=== PATIENT | female | born 1950 | race Caucasian/White ===

== ENCOUNTER 2022-07-23 09:47 | Outpatient (CLI) | payer MEDICARE, SELFPAY ==
--- NOTE | ~2022-07-23 | XR_ITS ---
XR hip LT 2V w AP pelvis DATE: 07/23/2022 10:17 INDICATION: Left hip pain. No known injury. TECHNIQUE: AP pelvis. AP and lateral views of left hip. COMPARISON: None FINDINGS: Prominent degenerative disc disease at L4-5 and L5-S1. Generator device overlies the left iliac crest, with leads extending cephalad. Bilateral osteitis condensans ilii. Normal alignment at the pubic symphysis and sacroiliac joints. No pelvic fracture or bone destruction is detected. Status post left total hip arthroplasty. No fracture or dislocation is noted at the left hip. No gomez osteal reaction or bone destruction. Surgical clips overlie the right hip. IMPRESSION: Status post left hip arthroplasty Bilateral osteitis condensans ilii Prominent degenerative disc disease at L4-5 and L5-S1 Reviewed, dictated and finalized at location B.
== END 2022-07-23 09:48 | disposition home or self-care (01) ==
PROVIDERS: PCP Internal Medicine; Visit Provider Internal Medicine
DX: M25.552 Pain in left hip (principal); Z96.642 Presence of left artificial hip joint; M85.38 Osteitis condensans, other site; M51.36 Other intervertebral disc degeneration, lumbar region
CPT/HCPCS: 73502

== ENCOUNTER 2022-07-23 10:32 | Emergency (ER) | payer MEDICARE, SELFPAY ==
[2022-07-23 10:51] VITALS: BP 181/66; PULSE 72; RESP 20; TEMP 36.8; O2SAT 98
--- NOTE | 2022-07-23 11:37 | ED.LOWEXIN ---
HPI - Extremity Injury (Lower) General Chief Complaint: Extremity Injury, Lower Stated Complaint: left hip pain - imaging already done out pt Time Seen by Provider: 07/23/22 11:37 Source: patient Mode of arrival: ambulatory Limitations: no limitations History of Present Illness HPI Narrative: Patient is a 72-year-old female with a history of hypertension, coronary artery disease, open heart surgery, presenting to the emergency department for evaluation of left hip pain. Patient reports she has had daily lateral left hip pain which is sharp, burning in nature without radiation to the buttocks or lower leg over the past 3 weeks. Patient was referred by her primary care physician for a hip x-ray today, but states that the pain was so severe that she cannot return home thus is seeking care at the emergency department. Patient has been taking oral Percocet without much improvement in her pain. She denies any focal numbness or weakness. She denies recent fall or injury. She denies back pain or knee pain. She denies any significant redness, reports chronic swelling of her bilateral lower extremities. She denies any lower extremity redness, calf pain. Patient states that she has follow-up with Dr. Varghese scheduled for August 12. Related Data Home Medications Medication Instructions Recorded Confirmed atorvastatin 40 mg tablet mg 07/23/22 clopidogrel 75 mg tablet mg 07/23/22 empagliflozin 25 mg tablet mg 07/23/22 (Jardiance) ezetimibe 10 mg tablet mg 07/23/22 fenofibrate nanocrystallized 145 mg PO 07/23/22 mg tablet folic acid 1 mg tablet 07/23/22 hydrocodone 5 mg-acetaminophen 325 tablet 07/23/22 mg tablet lisinopril 40 mg tablet mg 07/23/22 metoprolol tartrate 25 mg tablet mg 07/23/22 sertraline 50 mg tablet mg 07/23/22 tizanidine 4 mg tablet mg 07/23/22 Allergies Allergy/AdvReac Type Severity Reaction Status Date / Time Penicillins Allergy Rash Verified 07/23/22 10:55 Sulfa (Sulfonamide Allergy Rash Verified 07/23/22 10:55 Antibiotics) Review of Systems Review of Systems: CONSTITUTIONAL: Denies fever, chills, or sweats. EYES: Denies visual changes, redness, or discharge. ENT: Denies rhinorrhea, congestion, sore throat, or otalgia. CARDIOVASCULAR: Denies chest pain, palpitations, or edema. RESPIRATORY: Denies cough or dyspnea. GASTROINTESTINAL: Denies abdominal pain, nausea, vomiting, or diarrhea. GENITOURINARY: Denies dysuria or hematuria. SKIN: Denies rash or itching. MUSCULOSKELETAL: Denies back pain, denies knee pain, reports lateral left hip pain NEUROLOGIC: Denies headache, numbness, or weakness. Exam Narrative: GENERAL: Awake, alert, conversant HEAD: Normocephalic, atraumatic. EYES: PERRLA and EOMI. ENT: Nares clear, no rhinorrhea or epistaxis. Mucous membranes moist. NECK: Supple. CHEST: No respiratory distress, breathing even and non labored HEART: Regular rate, sinus rhythm ABDOMEN: Obese, distended, non tender EXTREMITIES: Normal range of motion. No edema. Pelvis is stable to anterior lateral compression. There is pain to palpation of the left lateral hip. Patient is ambulatory and able to bear weight on this extremity. No limb length discrepancy. Neurovascularly intact. Distal sensation intact. Full range of motion of the left hip although it is somewhat limited secondary to pain. Full flexion extension at the left knee without limitation or pain. SKIN: Warm, dry, no rash. NEURO:No focal deficits. Alert and oriented x3 Course Vital Signs Vital signs: Vital Signs Temperature 36.8 C 07/23/22 10:51 Pulse Rate 72 07/23/22 10:51 Respiratory Rate 20 07/23/22 10:51 Blood Pressure 181/66 H 07/23/22 10:51 Pulse Oximetry 98 07/23/22 10:51 Oxygen Delivery Room Air 07/23/22 10:51 Temperature 36.8 C 07/23/22 10:51 Pulse Rate 72 07/23/22 10:51 Respiratory Rate 20 07/23/22 10:51 Blood Pressure 181/66 H 07/23/22 10:51 Pulse Oximetry 98 0
[2022-07-23 13:07] LABS: Anion Gap 11 mmol/L (8-16); Blood Urea Nitrogen 25 mg/dL (7-17); CRP 0.9 mg/dL (<1.0); Calcium 9.3 mg/dL (8.4-10.2); Carbon Dioxide 23 mmol/L (22-30); Chloride 106 mmol/L (98-107); Estimated CRCL calculation 69 ml/min; Estimated Glomerular Filt Rate > 60; Glucose 95 mg/dL (65-110); Potassium 4.2 mmol/L (3.4-5.0); Sodium 140 mmol/L (137-145)
[2022-07-23 13:22] LABS: Basophils Absolute Auto 0.1 K/mm3 (0.0-0.1); Basophils Percent Auto 0.8 % (0.2-1.2); Eosinophils Absolute Auto 0.5 K/mm3 (0-0.3); Eosinophils Percent Auto 4.8 % (0-4.4); Hematocrit 32.1 % (37.0-47.0); Hemoglobin 9.3 g/dL (12.0-15.0); Immature Granulocyte Absolute 0.06 K/mm3 (0.00-0.031); Immature Granulocyte Percent A 0.6 % (0-0.5); Lymphocytes Absolute Auto 2.38 K/mm3 (0.9-3.2); Lymphocytes Percent Auto 25.1 % (18.3-44.2); Mean Corpuscular Hemoglobin 23.9 pg (26-34); Mean Corpuscular Volume 82.5 fl (80-100); Mean Platelet Volume 9.4 fl (7.4-10.4); Monocytes Absolute Auto 0.8 K/mm3 (0.1-0.6); Neutrophils Absolute Auto 5.7 K/mm3 (1.3-6.7); Neutrophils Percent Auto 60.7 % (45.5-73.1); Platelet Count Result 406 k/mm3 (150-375); Red Blood Count 3.89 M/mm3 (4.2-5.4); Red Cell Distribution Width 17.2 % (11.5-14.5); White Blood Count 9.5 K/mm3 (4.5-10.0)
[2022-07-23 14:11] LABS: Erythrocyte Sedimentation Rate 51 mm/hr (0-20)
[2022-07-23 15:22] VITALS: BP 144/68; PULSE 80; RESP 16; O2SAT 99
== END 2022-07-23 15:23 | disposition home or self-care (01) ==
PROVIDERS: Emergency Provider Emergency Medicine; PCP Internal Medicine
DX: M25.552 Pain in left hip (principal); I10 Essential (primary) hypertension; I25.10 Atherosclerotic heart disease of native coronary artery without angina pectoris; Z79.84 Long term (current) use of oral hypoglycemic drugs
CPT/HCPCS: 36415; 73502; 80048; 85025; 85652; 86140; 99283

== ENCOUNTER 2022-09-09 10:59 | Outpatient (CLI) | payer MEDICARE, SELFPAY ==
--- NOTE | ~2022-09-09 | MM_ITS ---
MM post biopsy diagnostic RT, MM stereotactic specimen RT, MM stereotactic bx RT EXAMINATION: MM post biopsy diagnostic RT, MM stereotactic specimen RT, MM stereotactic bx RT DATE: Mauricio Elkins M.D. INDICATION: Abnormal calcifications in the right breast. Stereotactic core biopsy is requested evalu ate for malignancy.] TECHNIQUE AND FINDINGS: The risks and potential benefits of the procedure were discussed with the patient and written informe d consent was obtained. The patient was placed in the prone position clustered at the table with the right breast in mediolateral compression, and the area of interest was localized and targeted utiliz ing digital imaging with stereotaxis. After sterile preparation of the skin, 1% lidocaine was utilized for local anesthesia at the skin pun cture site and 1% lidocaine with epinephrine was utilized for deeper local anesthesia/is about the bi opsy site. A 9G [employer] vacuum assisted biopsy needle was advanced to the level of the calcification o f interest from a lateral approach utilizing stereotactic guidance and a total of 6 tissue core biops ies were obtained. A specimen radiograph demonstrates that the calcifications of interest are included within the tissue cores. A tissue marker clip was then placed at the biopsy site. The needle was removed and hemosta sis was achieved. The patient tolerated the procedure well and there is no evidence of significant i mmediate complication. The patient was given verbal as well as written postprocedural instructions p rior to discharge from the department. Tissue cores were submitted to surgical pathology for histolo gic analysis. A 2-view right unilateral digital mammogram was obtained post procedure and this demonstrates that th e tissue marker clip is in expected position. IMPRESSION: 1. Successful stereotactic biopsy of calcifications in the upper outer quadrant of the right breast, followed by tissue marker clip placement. Please refer to pathology report for histologic analysis. Reviewed, dictated and finalized at location A. IMPRESSION: 1. Successful stereotactic biopsy of calcifications in the upper outer quadran t of the right breast, followed by tissue marker clip placement. Please refer to pathology report for histologic analysis. IMPRESSION: 1. Successful stereotactic biopsy of calcifications in the upper outer quadran t of the right breast, followed by tissue marker clip placement. Please refer to pathology report for histologic analysis.
== END 2022-09-09 11:00 | disposition home or self-care (01) ==
PROVIDERS: PCP Internal Medicine; Visit Provider Surgery
DX: R92.0 Mammographic microcalcification found on diagnostic imaging of breast (principal); N60.91 Unspecified benign mammary dysplasia of right breast
CPT/HCPCS: 19081; 77065; 88305; A4648

== ENCOUNTER 2022-09-29 13:09 | Inpatient (IN) | payer MEDICARE, SELFPAY ==
[2022-09-29] VITALS (30 sets, daily range): BP systolic 132–182; BP diastolic 48–93; PULSE 56–70; RESP 14–28; TEMP 36.7–37.4; O2SAT 87–100
--- NOTE | ~2022-09-29 | US_ITS ---
EXAMINATION: US venous doppler [facility] DATE: 09/30/2022 09:47 INDICATION: Lower limb edema. TECHNIQUE: Grayscale ultrasound images without and with compression and Doppler ultrasound images of the bilateral lower extremity veins were obtained. COMPARISON: None. FINDINGS: The visualized portions of right common femoral vein, profunda (deep) femoral vein, femoral vein, pop liteal vein, peroneal veins, posterior tibial veins, and greater saphenous vein outflow are patent. The visualized portions of left common femoral vein, profunda femoral vein, femoral vein, popliteal v ein, peroneal veins, posterior tibial veins, and greater saphenous vein outflow are patent. IMPRESSION: 1. No deep venous thrombosis. Reviewed, dictated and finalized at location A. ARCH RN SPEC
--- NOTE | ~2022-09-29 | XR_ITS ---
EXAMINATION: XR chest 2V Exam Date/Time: 09/29/2022 14:05 [facility]OR [facility] HISTORY: extreme SOB,dizzy,nausea. HX [facility] 02/2022 Comparison: None available. RESULT: Lines, tubes, and devices: Median sternotomy wires, the superior most wire is fractured. Sternal fix ation plates. Mediastinal clips. Stimulator leads traverse the thoracic spine and terminate in the lo wer cervical spine. Lungs and pleura: Senescent changes. Streaky bibasilar atelectasis. Minimal left and mild right cost ophrenic angle blunting. Cardiomediastinal silhouette: Cardiomegaly. Aortic calcification. Other: No acute osseous or upper abdominal finding. IMPRESSION: Small right and trace left pleural effusions. Reviewed, dictated and finalized at location K. IC FLOOR LAYER
--- NOTE | 2022-09-29 13:30 | ECG_ITS ---
Measurements Intervals [place] Rate: 59 P: -1 MN: 137 QRS: 6 QRSD: 81 T: 10 QT: 412 QTc: 411 Interpretive Statements SINUS BRADYCARDIA LOW QRS VOLTAGE IN PRECORDIAL LEADS CONSIDER INFERIOR INFARCT, AGE INDETERMINATE ABNORMAL ECG NO PREVIOUS ECG AVAILABLE FOR COMPARISON Electronically Signed On 09-29-2022 19:46:49 BODY TECHNICIAN by Daniel Daigle D.O.
[2022-09-29 15:03] LABS: Basophils Absolute Auto 0.1 K/mm3 (0.0-0.1); Basophils Percent Auto 0.8 % (0.2-1.2); Eosinophils Absolute Auto 0.1 K/mm3 (0-0.3); Immature Granulocyte Absolute 0.06 K/mm3 (0.00-0.031); Immature Granulocyte Percent A 0.7 % (0-0.5); Lymphocytes Absolute Auto 1.64 K/mm3 (0.9-3.2); Lymphocytes Percent Auto 17.8 % (18.3-44.2); Mean Corpuscular HGB Conc 26.6 g/dl (32-36); Mean Corpuscular Hemoglobin 21.4 pg (26-34); Mean Corpuscular Volume 80.6 fl (80-100); Mean Platelet Volume 10.3 fl (7.4-10.4); Monocytes Absolute Auto 0.8 K/mm3 (0.1-0.6); Monocytes Percent Auto 8.8 % (2.6-8.5); Neutrophils Absolute Auto 6.5 K/mm3 (1.3-6.7); Neutrophils Percent Auto 70.9 % (45.5-73.1); Nucleated Red Blood Cells Perc 0.4 % (0.0-0.2); Platelet Count Result 357 k/mm3 (150-375); Red Blood Count 2.52 M/mm3 (4.2-5.4); Red Cell Distribution Width 17.9 % (11.5-14.5); White Blood Count 9.2 K/mm3 (4.5-10.0)
[2022-09-29 15:08] LABS: Alanine Aminotransferase 21 U/L (6-35); Albumin Level 3.9 g/dL (3.5-5.1); Alkaline Phosphatase 94 U/L (38-126); Anion Gap 19 mmol/L (8-16); Aspartate Amino Transferase 27 U/L (14-36); Bilirubin,Total 0.3 mg/dL (0.2-1.3); Blood Urea Nitrogen 13 mg/dL (7-17); Calcium 8.2 mg/dL (8.4-10.2); Carbon Dioxide 19 mmol/L (22-30); Chloride 107 mmol/L (98-107); Estimated CRCL calculation 60 ml/min; Estimated Glomerular Filt Rate > 60; Glucose 132 mg/dL (65-110); Potassium 3.9 mmol/L (3.4-5.0); Sodium 145 mmol/L (137-145)
[2022-09-29 15:36] LABS: Hemoglobin 5.4 g/dL (12.0-15.0)
[2022-09-29 15:37] LABS: Hematocrit 20.3 % (37.0-47.0)
[2022-09-29 15:38] LABS: Platelet Estimate Adequate (Adequate)
[2022-09-29 15:39] LABS: Anisocytosis 3+ (NORMAL); Hypochromasia 2+ (NORMAL); Schistocytes None Seen (NORMAL)
--- NOTE | 2022-09-29 16:37 | ED.GENADULT ---
HPI - General Adult General Chief complaint: Recheck/Abnormal Lab/Rx Stated complaint: bloodwork critically low Time Seen by Provider: 09/29/22 15:36 Source: RN notes reviewed History of Present Illness HPI narrative: Patient presents emergency department from home for anemia. Patient has been feeling short of breath for the past 1 week she states that shortness of breath has been worse with ambulation and activity states she gets winded very easily the patient has been seen by her PCP and initially started on a Z-Natalio she got back today and at that time lab work of been ordered lab results that showed a low hemoglobin and the patient been sent to the ER for further evaluation. Patient is on Plavix and aspirin she denies having blood in her stool she denies any fevers or chills abdominal pain nausea or vomiting states she has had a cough this been nonproductive. Related Data Home Medications Medication Instructions Recorded Confirmed atorvastatin 40 mg tablet mg 07/23/22 clopidogrel 75 mg tablet mg 07/23/22 empagliflozin 25 mg tablet mg 07/23/22 (Jardiance) ezetimibe 10 mg tablet mg 07/23/22 fenofibrate nanocrystallized 145 mg PO 07/23/22 mg tablet folic acid 1 mg tablet 07/23/22 hydrocodone 5 mg-acetaminophen 325 tablet 07/23/22 mg tablet lisinopril 40 mg tablet mg 07/23/22 metoprolol tartrate 25 mg tablet mg 07/23/22 sertraline 50 mg tablet mg 07/23/22 tizanidine 4 mg tablet mg 07/23/22 Allergies Allergy/AdvReac Type Severity Reaction Status Date / Time Penicillins Allergy Rash Verified 07/23/22 10:55 Sulfa (Sulfonamide Allergy Rash Verified 07/23/22 10:55 Antibiotics) Review of Systems Review of Systems: Gen.: Denies fevers or chills ENT: Denies congestion Respiratory: Reports shortness of breath and cough CV: Denies chest pain or palpitations GI: Denies abdominal pain nausea, emesis or diarrhea Musculoskeletal: Denies back pain or muscle pain Neuro: Denies numbness, tingling, weakness or focal weakness Skin: Denies rash Except as documented, all other systems reviewed and negative [facility] Past Medical History Medical History (Updated 09/29/22 @ 18:27 by Mark Cooper DO) Coronary artery disease Social History Social History (Updated 09/29/22 @ 16:39 by Mark Cooper DO) Smoking status: Never smoker Exam Narrative: APPEARANCE: No acute distress, nontoxic, resting in bed EYES: EOMI HEENT: Normocephalic, atraumatic, OMM RESPIRATORY: No respiratory distress Clear to auscultation bilaterally with no rhonchi wheezing or rales. CARDIOVASCULAR: Regular rate and rhythm without murmurs rubs or gallops. ABDOMINAL: Soft, nontender, nondistended, no rebound or guarding Rectal: No hemorrhoids or fissures small amount of light brown stool that is Hemoccult positive MUSCULOSKELETAl: Moves all extremities. No clubbing, cyanosis or edema. NEURO: Awake and alert. Following commands, speech normal, no focal deficits SKIN:: Warm, dry. No rashes lesions or abrasions PSYCHIATRIC: Normal affect/mood, Course Course Emergency Course: Discussed with Dr. Paz presentation work-up agrees with consult Discussed with CHRISTINE Fuchs for Dr. Du agrees with admission with patient be transfused 2 units of PRBC Discussed with patient and family results of workup and diagnosis. Discussed need for admission. Patient and family understand and agree to current treatment plan Vital Signs Vital signs: Vital Signs Temperature 99.3 F 09/29/22 13:27 Pulse Rate 68 09/29/22 13:27 Respiratory Rate 28 H 09/29/22 13:27 Blood Pressure 132/83 09/29/22 13:27 Pulse Oximetry 98 09/29/22 13:27 Oxygen Delivery Room Air 09/29/22 13:27 Temperature 98.0 F 09/29/22 17:42 Pulse Rate 57 L 09/29/22 17:15 Respiratory Rate 20 09/29/22 17:15 Blood Pressure 157/60 H 09/29/22 17:42 Pulse Oximetry 99 09/29/22 17:15 Oxygen Delivery Room Air 09/29/22 13:27 Medical D
--- NOTE | 2022-09-29 17:15 | PM.IMHP ---
H&P: HPI History of Present Illness Date/Time: 09/29/22 17:15 Chief Complaint: Abnormal lab work. Narrative: This is a very pleasant 72-year-old female with coronary artery disease status post 3 vessel bypass in February 2022, hypertension, and hyperlipidemia who presented to the emergency department from home for evaluation of abnormal lab work. She reports progressive weakness, fatigue, and dyspnea on lesser and lesser exertion for the past 1 week. After speaking with her doctor on the phone, she was prescribed a Z-Natalio for possible pneumonia but unfortunately her symptoms have continued and she never really had symptoms of pneumonia. She has also been feeling lightheaded and dizzy and has had occasional palpitations. She had lab work done as an outpatient was told today that she had critically low hemoglobin she was sent in for evaluation. Hemoglobin and hematocrit were 5.4 in 20.3% respectively and she is being admitted in this setting. With further questioning she does report that she suffers from GERD though she has not had any recent change in symptoms and is well controlled on Prilosec. She has had some slight nausea however. It is noted that she has been on clopidogrel since her bypass in February. With further questioning she did have 2 days worth of dark stools a couple of weeks ago which she attributed to the fact that she changed the type of stool softener that she was taking however she thought it was strange as she was not taking Pepto-Bismol which has previously made her stools dark. Stools have since cleared up. She does occasionally have bright red blood on the toilet tissue which she attributes to hemorrhoids. She is on chronic pain medication which tends to cause constipation; she has also had a rectocele repair and she reports that she has difficulties having bowel movements at time since the surgery.. At the time my evaluation she is resting comfortably. On exam she has pretty significant lower extremity edema which has popped up within the last 1 week. She has not had chest pain, orthopnea, paroxysmal nocturnal dyspnea, or resting shortness of breath. Review of Systems Review of Systems: Twelve systems were reviewed and are negative except for as per HPI. [facility] Past Medical History Medical History (Updated 09/29/22 @ 23:42 by Shila Ruggiero PA-C) Bladder cancer Coronary artery disease Hyperlipidemia Hypertension Surgical History Surgical History (Updated 09/29/22 @ 23:39 by Shila Ruggiero PA-C) History of bilateral knee arthroplasty History of bladder surgery TURBT History of hysterectomy History of repair of rectocele History of three vessel coronary artery bypass History of tonsillectomy History of total left hip replacement History of tubal ligation Family History Family History Father Acute myocardial infarction Diabetes mellitus Hypertension Sibling Colon cancer Social History Social History (Updated 09/29/22 @ 23:39 by Shila Ruggiero PA-C) Social History: Surrogate medical decision maker: Angel Christiansen, spouse. Code status: Full code. Smoking status: Never smoker Alcohol intake: never Substance use: never Has the Lack of Transportation Kept You From Medical Appointments or From Getting Medications?: No Within the Past 12 Months, Were You Worried Whether Your Food Would Run Out Before You Got Money to Buy More?: Never True What is Your Housing Situation Today?: I Have Housing Are You Worried That in the Next 2 Months, You May Not Have Your Own Housing to Live In?: No Do You Have Trouble Paying Your Heating Or Electricity Bill?: No Do You Have Trouble Paying For Medicines?: No Are You Currently Unemployed and Looking for Work?: No Highest Level of Education Completed: Trade/Vocational Certificate Do You Have Trouble With Childcare or the Care of a Family Member?: No Spiritual care concerns: No M
[2022-09-29 17:33] LABS: SARS-CoV-2 RNA PCR Negative
[2022-09-29 17:56] LABS: Immature Reticulocyte Fraction 13.5 % (3.0-15.9); Reticulocyte Hemoglobin Conten 15.3 pg (28.2-35.7); Reticulocyte Percent 2.46 % (0.7-4.3); Reticulocytes Absolute 0.06 B/L (32.2-175.7)
[2022-09-29 18:07] LABS: INR 1.2; Prothrombin Time 14.9 Seconds (11.1-14.7)
[2022-09-29 18:08] LABS: Iron 19 ug/dL (37-170); Partial Thromboplastin Time 35.4 SECONDS (22.3-36.8)
[2022-09-29 18:17] LABS: Percent Iron Saturation 4 % (20-50)
[2022-09-29 18:20] LABS: NT Pro B Type Natriuretic Pept 2410 pg/mL (5-100); Troponin I 0.014 ng/mL (0.000-0.034)
[2022-09-29 18:44] LABS: Ferritin 9.06 ng/mL (11.1-264)
[2022-09-29] MEDS: TUBING, BLOOD SET 1 EACH XX (19:20)
[2022-09-29] MEDS: SODIUM CHLORIDE 0.9% IV 250 ML 30 ML IV CONT (19:20)
[2022-09-29 19:21] LABS: Folic Acid > 20.0 ng/mL (2.76->20)
--- NOTE | 2022-09-29 20:30 | ADMGEN ---
This patient, Alysia Christiansen, was admitted to Medical Room 347-. Patient/family oriented to hospital policies and general routines including ID bracelet, bed and alarms, visiting hours, pain management, procedures, bathroom and other care routines, personal items, smoking policy, room service/diet, and visiting hours. Information on how to activate the Rapid Response Team has been discussed. Patient/Family are encouraged to report perceived risks to care and to ask questions if they do not understand what they are told or what they should do.
[2022-09-30] VITALS (11 sets, daily range): BP systolic 148–181; BP diastolic 53–78; PULSE 56–78; RESP 16–22; TEMP 36.7–36.9; O2SAT 97–100
[2022-09-30] MEDS: FUROSEMIDE INJ 40 MG/4 ML VIAL IV PUSH (01:15)
[2022-09-30 06:10] LABS: Basophils Absolute Auto 0.1 K/mm3 (0.0-0.1); Basophils Percent Auto 1.1 % (0.2-1.2); Eosinophils Absolute Auto 0.1 K/mm3 (0-0.3); Eosinophils Percent Auto 1.5 % (0-4.4); Hematocrit 25.1 % (37.0-47.0); Hemoglobin 7.3 g/dL (12.0-15.0); Immature Granulocyte Absolute 0.07 K/mm3 (0.00-0.031); Immature Granulocyte Percent A 0.8 % (0-0.5); Lymphocytes Absolute Auto 1.53 K/mm3 (0.9-3.2); Lymphocytes Percent Auto 16.5 % (18.3-44.2); Mean Corpuscular HGB Conc 29.1 g/dl (32-36); Mean Corpuscular Hemoglobin 23.1 pg (26-34); Mean Corpuscular Volume 79.4 fl (80-100); Mean Platelet Volume 10.4 fl (7.4-10.4); Monocytes Absolute Auto 0.7 K/mm3 (0.1-0.6); Monocytes Percent Auto 7.8 % (2.6-8.5); Neutrophils Absolute Auto 6.7 K/mm3 (1.3-6.7); Neutrophils Percent Auto 72.3 % (45.5-73.1); Nucleated Red Blood Cells Perc 0.2 % (0.0-0.2); Platelet Count Result 313 k/mm3 (150-375); Red Blood Count 3.16 M/mm3 (4.2-5.4); Red Cell Distribution Width 17.2 % (11.5-14.5); White Blood Count 9.3 K/mm3 (4.5-10.0)
[2022-09-30 06:19] LABS: Potassium 3.5 mmol/L (3.4-5.0)
[2022-09-30 06:33] LABS: Alanine Aminotransferase 21 U/L (6-35); Alkaline Phosphatase 112 U/L (38-126); Anion Gap 13 mmol/L (8-16); Aspartate Amino Transferase 24 U/L (14-36); Bilirubin,Total 0.9 mg/dL (0.2-1.3); Blood Urea Nitrogen 12 mg/dL (7-17); Calcium 8.3 mg/dL (8.4-10.2); Carbon Dioxide 19 mmol/L (22-30); Chloride 109 mmol/L (98-107); Estimated CRCL calculation 65 ml/min; Estimated Glomerular Filt Rate > 60; Glucose 115 mg/dL (65-110); Sodium 141 mmol/L (137-145)
[2022-09-30 06:40] LABS: Anisocytosis 1+ (NORMAL); Ovalocytes 1+ (NORMAL); Platelet Estimate Adequate (Adequate)
[2022-09-30 06:43] LABS: Schistocytes None Seen (NORMAL)
[2022-09-30 07:01] LABS: Thyroid Stimulating Hormone Reflex 0.565 uIU/mL (0.465-4.68)
--- NOTE | 2022-09-30 08:44 | PM.IMPN ---
Progress Note: A&P Assessment and Plan (1) Symptomatic anemia: Code(s): D64.9 - Anemia, unspecified Status: Acute (2) Lower extremity edema: Code(s): R60.0 - Localized edema Status: Acute (3) Hypertension: Code(s): I10 - Essential (primary) hypertension Status: Acute (4) Hyperlipidemia: Code(s): E78.5 - Hyperlipidemia, unspecified Status: Acute (5) Coronary artery disease: Code(s): I25.10 - Atherosclerotic heart disease of [place] coronary artery without angina pectoris Status: Acute Plan The patient presented to the emergency department today at the instruction of her primary doctor for evaluation after she was found to have critically low hemoglobin and hematocrit. She reports having dark stools for couple of days a week or so ago but that has since resolved. I suspect that she has occult GI loss and Dr. Ellis has been consulted. She will be NPO after midnight for probable endoscopy in the morning. She may very well need a colonoscopy as well. She has been on Plavix since her bypass in February and we will have to hold that for now. She will be transfused to a stable hemoglobin. Lasix has been ordered as she does appear to have volume overload already (possibly from high-output failure given her anemia). Volume status will be monitored closely. Her vital signs are stable. Home medications will be reviewed and resumed as appropriate. 09/30/22 pending colonoscopy an EGD tomorrow clear liquid diet for now plavix on hold Hgb 5.4-> 7.3 after blood transfusion PPI BID home meds continued C/s to GI appreciated Subjective Date/time seen: 09/30/22 08:44 at the time of our interview today patient is denying black stools this is a change from her prior history she also acknowledges that she has previously been diagnosed with anemia and told that she has likely bone marrow problems. GI is present during my conversation and patient would like to proceed with EGD and colonoscopy to ensure that she is not actively bleeding Review of Systems Review of Systems: All systems reviewed & are unremarkable except as noted in HPI and below Exam Narrative: Exam Const:?? Other: Well-develo ped, nontoxic-appe aring female sitti ng up in bed in no distress. morbid ly obese HENMT:?? Other: Normocephal ic, atraumatic.? moist mucous membr anes. Eyes:?? Other: Pupils reac tive.? Extraocular motions intact.? Neck:?? Other: Supple. Resp:?? Other: Respiration s are nonlabored.? Lung sounds are a bit diminished at the bases but are otherwise clear t o auscultation. Cardio:?? Other: Bradycardic with normal S1-S2 .? Soft systolic m urmur at the upper sternal border. GI:?? Other: Abdomen is soft, nontender, a nd nondistended wi th positive bowel sounds. Skin:?? Other: Warm and dr slaughter Neuro:?? Other: Alert and o riented. Cranial n erves 2-12 grossly intact.? No gross focal deficits to casual conversati on. Extrem:?? Other: No cyanosis or clubbing. mil d 1+ Bilateral low er extremity edema below the knees. Negative Grisel sig n b
[2022-09-30 10:09] LABS: Glucose Point of Care 123 mg/dl (65-105)
[2022-09-30 12:26] LABS: Glucose Point of Care 97 mg/dl (65-105)
[2022-09-30] MEDS: METOPROLOL TARTRATE 25 MG TABLET PO ×2 (12:32→20:43)
[2022-09-30] MEDS: lisinopriL 20 MG TABLET 40 MG PO (12:33)
[2022-09-30] MEDS: SERTRALINE HCL 50 MG TABLET PO (12:33)
[2022-09-30] MEDS: EMPAGLIFLOZIN 25 MG TABLET PO (12:34)
[2022-09-30] MEDS: PANTOPRAZOLE SODIUM IV 40 MG VIAL IV PUSH ×2 (12:34→20:43)
[2022-09-30] MEDS: ATORVASTATIN 40 MG TABLET PO (12:34)
[2022-09-30] MEDS: HYDROcodone/acetaminophen (*CRX) 5-325 MG TABLET 1.5 TAB PO ×3 (12:42→20:43)
--- NOTE | 2022-09-30 15:56 | WPDGICN ---
Assessment and Plan Assessment and plan (1) Acute on chronic blood loss anemia: Code(s): D62 - Acute posthemorrhagic anemia Status: Acute Assessment and Plan: known history of anemia but now more symptomatic requiring blood transfusion will proceed with egd and colonoscopy (2) Black stool: Code(s): K92.1 - Melena Status: Acute Assessment and Plan: wonder if upper gib, will assess with egd tomorrow (3) Congestive heart failure: Code(s): I50.9 - Heart failure, unspecified Status: Acute (4) Coronary artery disease: Code(s): I25.10 - Atherosclerotic heart disease of [place] coronary artery without angina pectoris Status: Acute Assessment and Plan: h/o bypass holding plavix for now (5) 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 She came to the emergency department from home for evaluation of new anemia. She reports progressive weakness, fatigue, and dyspnea for the last week, treated empirically for possible upper respiratory infection because shortness of breath, finally had blood work that revealed anemia with hemoglobin and hematocrit were 5.4 in 20.3%. She has been lightheaded. Also history of GERD well controlled on Prilosec.?Also noted 2 days of dark stools She does occasionally have bright red blood on the toilet tissue which she attributes to hemorrhoids, she takes chronic pain medication which tends to cause constipation and had rectocele repair. No colonoscopy but she has done cologuard. Review of Systems Constitutional: Constitutional: Reports fatigue and Reports lethargy Eyes: Eyes: Denies blurry vision ENT: Reports Normal hearing present Cardiovascular: Cardiovascular: Reports lightheadedness Respiratory: Respiratory: Reports dyspnea on exertion Gastrointestinal: Gastrointestinal: Reports constipation Genitourinary: Genitourinary: Denies hematuria Musculoskeletal: Musculoskeletal: Denies back pain Integumentary/Breasts: Skin/Breast: Denies rash Neurologic: Denies Abnormal speech present Psychiatric: Psychiatric: Denies behavioral changes [facility] Past Medical History Medical History (Updated 09/30/22 @ 16:05 by Alberto Ellis MD) Acute on chronic blood loss anemia Black stool Bladder cancer Coronary artery disease 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 Hyperlipidemia Hypertension Surgical History Surgical History (Updated 09/29/22 @ 23:39 by Shila Ruggiero PA-C) History of bilateral knee arthroplasty History of bladder surgery TURBT History of hysterectomy History of repair of rectocele History of three vessel coronary artery bypass History of tonsillectomy History of total left hip replacement History of tubal ligation Family History Family History Father Acute myocardial infarction Diabetes mellitus Hypertension Sibling Colon cancer Social History Social History (Updated 09/29/22 @ 23:39 by Shila Ruggiero PA-C) Social History: Surrogate medical decision maker: Angel Kuldip, spouse. Code status: Full code. Smoking status: Never smoker Alcohol intake: never Substance use: never Has the Lack of Transportation Kept You From Medical Appointments or From Getting Medications?: No Within the Past 12 Months, Were You Worried Whether Your Food Would Run Out Before You Got Money to Buy More?: Never True What is Your Housing Situation Today?: I Have Housing Are You Worried That in t
[2022-09-30] MEDS: EZETIMIBE 10 MG TABLET PO (17:29)
[2022-09-30 17:39] LABS: Glucose Point of Care 170 mg/dl (65-105)
[2022-09-30] MEDS: BISACODYL 5 MG TABLET EC 20 MG PO (19:45)
[2022-09-30] MEDS: polyethylene glycoL 3350 238 GM BOTTLE PO (19:46)
--- NOTE | 2022-09-30 23:43 | ECHO_ITS ---
Patient Info Name: Alysia Christiansen Age: 72 years : 1950 Gender: Female Ht: 62 in Wt: 253 lbs BSA: 2.31 m2 HR: 63 bpm BP: 148 / 53 mmHg Heart Rhythm: Sinus Rhythm Exam Date: 09/30/2022 1:56 PM Exam Location: [facility] Pulmonary Patient Status: Outpatient Admit Date: 09/29/2022 Staff Ordering Physician: Shila Ruggiero PA-C Typewriter Mechanic: Roe Martinez RDCS, RT Attending Provider: Peewee Du MD Referring Physician: Monik MC; Exam Type: CA echo doppler color flow Study Info Indications R60.0 - Localized edema Complete two-dimensional, color flow and Doppler transthoracic echocardiogram is performed. Strain analysis performed. Summary 1. Complete two-dimensional, color flow and Doppler transthoracic echocardiogram is performed. 2. Left ventricular chamber dimension is mildly enlarged. 3. Left ventricular systolic function is normal, estimated at 60-65%. 4. There is mildly increased left ventricular wall thickness. 5. Right ventricular systolic function is normal. 6. Left atrial chamber dimension is moderately enlarged. 7. Right atrial chamber dimension is mildly enlarged. 8. There is severe mitral valve regurgitation. 9. There is moderate tricuspid valve regurgitation. Left Ventricle Left ventricular chamber dimension is mildly enlarged. Left ventricular systolic function is normal, estimated at 60-65%. There is mildly increased left ventricular wall thickness. Right Ventricle Right ventricular chamber dimension is normal. Right ventricular systolic function is normal. Left Atria Left atrial chamber dimension is moderately enlarged. Right Atria Right atrial chamber dimension is mildly enlarged. Atrial Septum Intact interatrial septum visualized by color flow imaging. Aortic Valve The aortic valve is not well visualized. There is no aortic valve regurgitation. There is mild aortic valve calcification. Pulmonic Valve The pulmonic valve is not well visualized. There is trace pulmonic regurgitation. Mitral Valve The mitral valve has posterior prolapse. There is no mitral valve stenosis. There is severe mitral valve regurgitation. Tricuspid Valve The tricuspid valve leaflets are normal. There is moderate tricuspid valve regurgitation. Pericardium/Pleural There is no pericardial effusion. Inferior Vena Cava Dilated inferior vena cava with >50% collapse upon inspiration consistent with elevated right atrial pressure, 8 mmHg. Aorta The aortic root size at the sinus of Valsalva is normal. Left Ventricular Outflow Tract Name Value Normal LVOT 2D LVOT Diameter 2.0 cm LVOT Doppler LVOT Peak Gradient 6 mmHg LVOT Mean Gradient 3 mmHg LVOT VTI 27 cm LVOT VTI/AV VTI Ratio 0.6 LVOT Stroke Volume 87 ml LVOT CO 5.3 l/min LVOT CI 2.3 l/min/m2 Mitral Valve Name
[2022-10-01] VITALS (14 sets, daily range): BP systolic 111–163; BP diastolic 39–66; PULSE 59–90; RESP 16–25; TEMP 35.9–36.6; O2SAT 97–100
[2022-10-01 05:55] LABS: Anion Gap 15 mmol/L (8-16); Blood Urea Nitrogen 12 mg/dL (7-17); Calcium 7.9 mg/dL (8.4-10.2); Carbon Dioxide 21 mmol/L (22-30); Chloride 105 mmol/L (98-107); Estimated CRCL calculation 73 ml/min; Estimated Glomerular Filt Rate > 60; Glucose 103 mg/dL (65-110); Potassium 3.4 mmol/L (3.4-5.0); Sodium 141 mmol/L (137-145)
[2022-10-01 06:04] LABS: Basophils Absolute Auto 0.1 K/mm3 (0.0-0.1); Basophils Percent Auto 1.1 % (0.2-1.2); Eosinophils Absolute Auto 0.7 K/mm3 (0-0.3); Eosinophils Percent Auto 8.8 % (0-4.4); Hematocrit 25.1 % (37.0-47.0); Hemoglobin 7.3 g/dL (12.0-15.0); Immature Granulocyte Absolute 0.06 K/mm3 (0.00-0.031); Immature Granulocyte Percent A 0.8 % (0-0.5); Lymphocytes Absolute Auto 1.69 K/mm3 (0.9-3.2); Lymphocytes Percent Auto 22.4 % (18.3-44.2); Mean Corpuscular HGB Conc 29.1 g/dl (32-36); Mean Corpuscular Hemoglobin 23.5 pg (26-34); Mean Corpuscular Volume 80.7 fl (80-100); Mean Platelet Volume 10.5 fl (7.4-10.4); Monocytes Absolute Auto 0.7 K/mm3 (0.1-0.6); Monocytes Percent Auto 9.2 % (2.6-8.5); Neutrophils Absolute Auto 4.4 K/mm3 (1.3-6.7); Neutrophils Percent Auto 57.7 % (45.5-73.1); Nucleated Red Blood Cells Perc 0.3 % (0.0-0.2); Platelet Count Result 315 k/mm3 (150-375); Red Blood Count 3.11 M/mm3 (4.2-5.4); White Blood Count 7.5 K/mm3 (4.5-10.0)
[2022-10-01 07:26] LABS: Hypochromasia 2+ (NORMAL); Microcytosis 1+ (NORMAL); Platelet Estimate Adequate (Adequate); Poikilocytosis 1+ (NORMAL)
--- NOTE | 2022-10-01 10:56 | PM.IMPN ---
Progress Note: A&P Assessment and Plan (1) Symptomatic anemia: Code(s): D64.9 - Anemia, unspecified Status: Acute (2) CHF (congestive heart failure): Code(s): I50.9 - Heart failure, unspecified Status: Acute (3) Hypertension: Code(s): I10 - Essential (primary) hypertension Status: Acute (4) Hyperlipidemia: Code(s): E78.5 - Hyperlipidemia, unspecified Status: Acute (5) Coronary artery disease: Code(s): I25.10 - Atherosclerotic heart disease of [place] coronary artery without angina pectoris Status: Acute (6) CAROLINE (obstructive sleep apnea): Code(s): G47.33 - Obstructive sleep apnea (adult) (pediatric) Status: Acute (7) Mitral regurgitation: Code(s): I34.0 - Nonrheumatic mitral (valve) insufficiency Status: Acute Plan The patient presented to the emergency department today at the instruction of her primary doctor for evaluation after she was found to have critically low hemoglobin and hematocrit. She reports having dark stools for couple of days a week or so ago but that has since resolved. I suspect that she has occult GI loss and Dr. Ellis has been consulted. She will be NPO after midnight for probable endoscopy in the morning. She may very well need a colonoscopy as well. She has been on Plavix since her bypass in February and we will have to hold that for now. She will be transfused to a stable hemoglobin. Lasix has been ordered as she does appear to have volume overload already (possibly from high-output failure given her anemia). Volume status will be monitored closely. Her vital signs are stable. Home medications will be reviewed and resumed as appropriate. 09/30/22 pending colonoscopy an EGD tomorrow clear liquid diet for now plavix on hold Hgb 5.4-> 7.3 after blood transfusion PPI BID home meds continued C/s to GI appreciated 10/01/22 patient presents with weakness found to have profound anemia. She was transfused. No significant GI blood loss. Patient with elevated BNP and chest x-ray showing effusions as well as clinical evidence of fluid overload. Patient felt to have CHF from high-output failure related to her profound anemia. echocardiogram shows EF of 60-65% and severe mitral regurgitation. She was transfused 2 units of packed red blood cells. Hemoglobin has climbed to the 7 range. She mentions that she has had an evaluation for anemia in the past and was found to have a 'bone marrow problem . Her hgb normally runs in the 9 range. She did see hematology here. Plan for patient to follow-up with Hematology after discharge. Will also plan to have the patient follow-up with Cardiology for further evaluation of her mitral valve regurgitation. GI was consulted with plans for EGD and colonoscopy today. Follow-up on results. Subjective Date/time seen: 10/01/22 10:56 Interval history: 72yo female with CAD, HTN and CAROLINE here for weakness and abnormal lab work and found to have anemia. Assuming care. Chart reviewed. Patient denies any melena or hematochezia prior to admission. She had a rectocele surgery about 8 years ago and does have issues with constipation and hemorrhoids. She does not take medications chronically for constipation but does drink plenty of water and juice for this. She has noted increasing pedal edema prior to admission. She status post CABG x3 vessel in February. She did know increasing urine output with the Lasix given earlier this admission and her edema is improved.She does not wear oxygen at home. She does have sleep apnea and wears nasal pillows at home. no melena or hematochezia overnight with the bowel prep. Exam Narrative: AF 97.9 126/49 63 20 100% 1.5L Gen - NARD Chest - CTA bilaterally, nml RR CV - RRR S1/S2 with 2/6 systloic murmur heard t/o the precordium Abd - Soft, obese, NT Ext - R>L trace pedal edema Psych - Nml mood and affect Skin - Warm and dry Objective Data Vit
[2022-10-01 10:57] LABS: Schistocytes None Seen (NORMAL)
--- NOTE | 2022-10-01 13:15 | PC.NURSE ---
Pt to Gi at 1315
[2022-10-01] MEDS: LACTATED RINGERS 1,000 ML 150 ML IV CONT (13:24)
--- NOTE | 2022-10-01 13:57 | WPDANESEPPF ---
Anes - Initial Pre Proc Eval Procedure: Operation Date: 10/01/22 15:00 Proposed Procedures p Esophagogastroduodenoscopy & Colonoscopy - Alberto Ellis MD Date/Time: 10/01/22 13:57 Surgeon: Peewee Du MD Pre Op Diagnosis: Symptomatic anemia, GI bleed Patient Data Age: 72 Gender: F Height: 1.57 m Weight: 109.2 kg Last Vital Signs Temp 97.3 F L 10/01/22 13:29 Pulse 90 10/01/22 13:29 Resp 20 10/01/22 13:29 BP 163/53 H 10/01/22 13:29 Pulse Ox 100 10/01/22 13:29 O2 Del Method Room Air 10/01/22 13:29 O2 Flow Rate 5 09/29/22 22:32 Allergies Allergy/AdvReac Type Severity Reaction Status Date / Time Penicillins Allergy Rash Verified 10/01/22 13:26 Sulfa (Sulfonamide Allergy Rash Verified 10/01/22 13:26 Antibiotics) Home Medications Medication Instructions Recorded Confirmed Type atorvastatin 40 mg tablet 40 mg PO DAILY 07/23/22 09/29/22 History clopidogrel 75 mg tablet 75 mg PO DAILY 07/23/22 09/29/22 History empagliflozin 25 mg tablet 25 mg PO DAILY 07/23/22 09/29/22 History (Jardiance) ezetimibe 10 mg tablet 10 mg PO QPM 07/23/22 09/29/22 History folic acid 1 mg tablet 1 mg PO 3XW 07/23/22 09/29/22 History hydrocodone 5 mg-acetaminophen 325 1.5 tablet PO TID 07/23/22 09/29/22 History mg tablet lisinopril 40 mg tablet 40 mg PO DAILY 07/23/22 09/29/22 History metoprolol tartrate 25 mg tablet 25 mg PO BID 07/23/22 09/29/22 History sertraline 50 mg tablet 50 mg PO DAILY 07/23/22 09/29/22 History tizanidine 4 mg tablet 4 mg PO HS 07/23/22 09/29/22 History Laboratory Tests 09/30/22 10/01/22 10/01/22 17:37 05:30 05:30 WBC 7.5 K/mm3 K/mm3 (4.5-10.0) RBC 3.11 M/mm3 L M/mm3 (4.2-5.4) Hgb 7.3 g/dL L g/dL (12.0-15.0) Hct 25.1 % L % (37.0-47.0) MCV 80.7 fl fl (80-100) MCH 23.5 pg L pg (26-34) MCHC 29.1 g/dl L g/dl (32-36) RDW 18.0 % H % (11.5-14.5) Plt Count 315 k/mm3 k/mm3 (150-375) MPV 10.5 fl H fl (7.4-10.4) Immature Gran % (Auto) 0.8 % H % (0-0.5) Neut % (Auto) 57.7 % % (45.5-73.1) Lymph % (Auto) 22.4 % % (18.3-44.2) Simpson % (Auto) 9.2 % H % (2.6-8.5) Eos % (Auto) 8.8 % H % (0-4.4) Baso % (Auto) 1.1 % % (0.2-1.2) Lymph # (Auto) 1.69 K/mm3 K/mm3 (0.9-3.2) Simpson # (Auto) 0.7 K/mm3 H K/mm3 (0.1-0.6) Eos # (Auto) 0.7 K/mm3 H K/mm3 (0-0.3) Baso # (Auto) 0.1 K/mm3 K/mm3 (0.0-0.1) Abs Immat Gran (auto) 0.06 K/mm3 H K/mm3 (0.00-0.031) Absolute Neuts (auto) 4.4 K/mm3 K/mm3 (1.3-6.7) Absolute Nucleated RBC 0.0 K/mm3 K/mm3 (0.0-0.012) Nucleated RBC % 0.3 % H % (0.0-0.2) Platelet Estimate Adequate (Adequate) Hypochromasia 2+ (NORMAL) Poikilocytosis 1+ (NORMAL) Microcytosis 1+ (NORMAL) Schistocytes None seen (NORMAL) Sodium 141 mmol/L mmol/L (137-145) Potassium 3.4 mmol/L mmol/L (3.4-5.0) Chloride 105 mmol/L mmol/L (98-107) Carbon Dioxide 21 mmol/L L mmol/L (22-30) Anion Gap 15 mmol/L mmol/L (8-16) BUN 12 mg/dL mg/dL (7-17) Creatinine 0.70 mg/dL mg/dL (0.7-1.0) Estim Creat Clear Calc 73 ml/min ml/min Estimated GFR > 60 (59 - ) Glucose 103 mg/dL mg/dL (65-110) POC Capillary Glucose 170 mg/dl H mg/dl (65-105) Calcium 7.9 mg/dL L mg/dL (8.4-10.2) Patient hx anesthesia problems: none Family hx anesthesia problems: none Results Review: All pre-operative results and documents have been reviewed as part of the pre-operative evaluation. FORMERLY [facility], [facility] Past Medical History Medical History (Updated 10/01/22 @ 11:05 by Barrington Ayala MD) Acute on chronic blood loss anemia Black stool
--- NOTE | 2022-10-01 15:26 | SUR.OPER ---
EGD START 1500, END 1503 COLONOSCOPY START 1508, END 1528
--- NOTE | 2022-10-01 15:54 | PC.NURSE ---
Pt returned from GI lab at 1550.
[2022-10-01] MEDS: HYDROcodone/acetaminophen (*CRX) 5-325 MG TABLET 1.5 TAB PO ×2 (16:07→20:06)
[2022-10-01] MEDS: EZETIMIBE 10 MG TABLET PO (17:30)
[2022-10-01] MEDS: POTASSIUM CHLORIDE 20 MEQ TABLET PO (18:19)
[2022-10-01] MEDS: METOPROLOL TARTRATE 25 MG TABLET PO (20:04)
[2022-10-01] MEDS: TIZANIDINE HCL 4 MG TABLET PO (20:04)
[2022-10-02] VITALS (11 sets, daily range): BP systolic 138–151; BP diastolic 49–90; PULSE 54–70; RESP 16–20; TEMP 36.2–36.5; O2SAT 94–100
[2022-10-02 05:16] LABS: Hematocrit 25.3 % (37.0-47.0); Hemoglobin 7.2 g/dL (12.0-15.0); Mean Corpuscular HGB Conc 28.5 g/dl (32-36); Mean Corpuscular Hemoglobin 23.2 pg (26-34); Mean Corpuscular Volume 81.4 fl (80-100); Mean Platelet Volume 9.9 fl (7.4-10.4); Platelet Count Result 308 k/mm3 (150-375); Red Blood Count 3.11 M/mm3 (4.2-5.4); Red Cell Distribution Width 18.6 % (11.5-14.5); White Blood Count 7.8 K/mm3 (4.5-10.0)
[2022-10-02 05:28] LABS: Anion Gap 10 mmol/L (8-16); Blood Urea Nitrogen 16 mg/dL (7-17); Calcium 7.9 mg/dL (8.4-10.2); Carbon Dioxide 21 mmol/L (22-30); Chloride 108 mmol/L (98-107); Estimated CRCL calculation 44 ml/min; Estimated Glomerular Filt Rate 44; Glucose 106 mg/dL (65-110); Potassium 4.2 mmol/L (3.4-5.0); Sodium 139 mmol/L (137-145)
--- NOTE | 2022-10-02 07:56 | WPDANESPN ---
Anes - Prog Note Post-Op Date/Time: 10/02/22 07:56 Cardiovascular status: normal Respiratory status: normal Airway patency: baseline Mental status: baseline Post-Op hydration status: normal Vital Signs: Last Vital Signs Temp 36.3 C L 10/02/22 06:00 Pulse 58 L 10/02/22 06:00 Resp 16 10/02/22 06:00 BP 138/68 10/02/22 06:00 Pulse Ox 96 10/02/22 06:00 O2 Del Method Room Air 10/02/22 02:52 O2 Flow Rate 2 10/01/22 15:42 Pain Score (VAS): 0/10 I/O: Intake & Output 10/01/22 10/01/22 10/02/22 15:59 23:59 07:59 Intake Total 150 342 Balance 150 342 Laboratory Tests 10/02/22 05:03 10/02/22 05:03 10/01/22 10/02/22 10/02/22 05:30 05:03 05:03 WBC 7.8 RBC 3.11 L Hgb 7.2 L Hct 25.3 L MCV 81.4 MCH 23.2 L MCHC 28.5 L RDW 18.6 H Plt Count 308 MPV 9.9 Schistocytes None seen Sodium 139 Potassium 4.2 Chloride 108 H Carbon Dioxide 21 L Anion Gap 10 BUN 16 Creatinine 1.20 H Estim Creat Clear Calc 44 Estimated GFR 44 L Glucose 106 Calcium 7.9 L Post-procedural complaints: none Patient Feedback: Patient satisfied with anesthetic care.
[2022-10-02] MEDS: HYDROcodone/acetaminophen (*CRX) 5-325 MG TABLET 1.5 TAB PO ×3 (08:08→22:00)
[2022-10-02] MEDS: SERTRALINE HCL 50 MG TABLET PO (08:10)
[2022-10-02] MEDS: METOPROLOL TARTRATE 25 MG TABLET PO ×2 (08:10→22:00)
[2022-10-02] MEDS: EMPAGLIFLOZIN 25 MG TABLET PO (08:10)
[2022-10-02] MEDS: ATORVASTATIN 40 MG TABLET PO (08:10)
[2022-10-02] MEDS: PANTOPRAZOLE 40 MG TABLET PO (08:11)
[2022-10-02] MEDS: lisinopriL 20 MG TABLET 40 MG PO (08:11)
--- NOTE | 2022-10-02 15:31 | PM.DS ---
DS: Admitting Diagnosis Discharge Date 10/03/22 Admitting Diagnosis Weakness DS: Discharge Diagnosis Discharge Diagnosis (1) Symptomatic anemia: Code(s): D64.9 - Anemia, unspecified Status: Acute (2) CHF (congestive heart failure): Code(s): I50.9 - Heart failure, unspecified Status: Acute (3) Hypertension: Code(s): I10 - Essential (primary) hypertension Status: Acute (4) Hyperlipidemia: Code(s): E78.5 - Hyperlipidemia, unspecified Status: Acute (5) Coronary artery disease: Code(s): I25.10 - Atherosclerotic heart disease of [place] coronary artery without angina pectoris Status: Acute (6) CAROLINE (obstructive sleep apnea): Code(s): G47.33 - Obstructive sleep apnea (adult) (pediatric) Status: Acute (7) Mitral regurgitation: Code(s): I34.0 - Nonrheumatic mitral (valve) insufficiency Status: Acute (8) HUSEYIN (acute kidney injury): Code(s): N17.9 - Acute kidney failure, unspecified Status: Acute DS: Summary Hospital Course Reason for hospitalization: 72yo female with CAD, HTN and CAROLINE here for weakness and abnormal lab work and found to have anemia. Please see H&P details Hospital Course: The patient presented to the emergency department for weakness and found to have profound anemia by her doctor. She reported having dark stools. Hgb was 5.4. Iron studies consistent with iron deficiency. B12/Folate normal. She was transfused 2U PRBC. Patient with elevated BNP and chest x-ray showing effusions as well as clinical evidence of fluid overload. Patient felt to have CHF from high-output failure related to her profound anemia. Echo shows EF of 60-65% and severe mitral regurgitation. She states her cardiologists know about the mitral valve disease. Hemoglobin climbed to the 7 range and remained stable. She was seen by GI and colonoscopy and EGD were performed. Colonoscopy showing one 5mm transverse colon polyp that was removed, divertiulosis and internal hemoorhoids. No evidence of recent bleeding. EGD was normal. She mentioned that she has had an evaluation for anemia in the past and was found to have a 'bone marrow problem . She was followed with hematology in the past. Hematology did see her here. Plan for patient to follow-up with Hematology after discharge. Will also plan to have the patient follow-up with Cardiology for further evaluation of her mitral valve regurgitation. She developed transient elevation of her BUN/Cr after her bowel prep. She was monitored and renal function returned to baseline without intervention. She had clinically improvement and was able to be discharged home on 10/03/22 Status at Discharge Cognitive/behavioral status at discharge: Stable Time Spent with Patient Time attestation: Total time spent providing and/or coordinating discharge services: 35 minutes Time spent: Greater than 30 minutes Exam Narrative: AF 96.8 115/57 78 20 97% RA Gen - NARD Chest - CTA bilaterally, nml RR CV - RRR S1/S2 Abd - Soft, obese, NT Ext - no pedal edema Psych - Nml mood and affect Skin - Warm and dry DS: Data Data Completed and Pending Pending studies at discharge: Pending at discharge 10/01/22 15:20 Surgical [PTH] Routine Labs on day of discharge: Labs from last 24 hours 10/02/22 10/02/22 05:03 05:03 WBC 7.8 RBC 3.11 L Hgb 7.2 L Hct 25.3 L MCV 81.4 MCH 23.2 L MCHC 28.5 L RDW 18.6 H Plt Count 308 MPV 9.9 Sodium 139 Potassium 4.2 Chloride 108 H Carbon Dioxide 21 L Anion Gap 10 BUN 16 Creatinine 1.20 H Estim Creat Clear Calc 44 Estimated GFR 44 L Glucose 106 Calcium 7.9 L Discharge Plan Discharge Attending physician on discharge: Barrington Ayala Consulting providers: Alberto Ellis Discharging Clinician: Barrington Ayala Anticipated Discharge Date/Time: 10/02/22 15:41 Patient Dispo
--- NOTE | 2022-10-02 18:43 | PM.IMPN ---
Progress Note: A&P Assessment and Plan (1) HUSEYIN (acute kidney injury): Code(s): N17.9 - Acute kidney failure, unspecified Status: Acute (2) Symptomatic anemia: Code(s): D64.9 - Anemia, unspecified Status: Acute (3) CHF (congestive heart failure): Code(s): I50.9 - Heart failure, unspecified Status: Acute (4) Hypertension: Code(s): I10 - Essential (primary) hypertension Status: Acute (5) Hyperlipidemia: Code(s): E78.5 - Hyperlipidemia, unspecified Status: Acute (6) Coronary artery disease: Code(s): I25.10 - Atherosclerotic heart disease of [place] coronary artery without angina pectoris Status: Acute (7) CAROLINE (obstructive sleep apnea): Code(s): G47.33 - Obstructive sleep apnea (adult) (pediatric) Status: Acute (8) Mitral regurgitation: Code(s): I34.0 - Nonrheumatic mitral (valve) insufficiency Status: Acute Plan The patient presented to the emergency department today at the instruction of her primary doctor for evaluation after she was found to have critically low hemoglobin and hematocrit. She reports having dark stools for couple of days a week or so ago but that has since resolved. I suspect that she has occult GI loss and Dr. Ellis has been consulted. She will be NPO after midnight for probable endoscopy in the morning. She may very well need a colonoscopy as well. She has been on Plavix since her bypass in February and we will have to hold that for now. She will be transfused to a stable hemoglobin. Lasix has been ordered as she does appear to have volume overload already (possibly from high-output failure given her anemia). Volume status will be monitored closely. Her vital signs are stable. Home medications will be reviewed and resumed as appropriate. 09/30/22 pending colonoscopy an EGD tomorrow clear liquid diet for now plavix on hold Hgb 5.4-> 7.3 after blood transfusion PPI BID home meds continued C/s to GI appreciated 10/01/22 patient presents with weakness found to have profound anemia. She was transfused. No significant GI blood loss. Patient with elevated BNP and chest x-ray showing effusions as well as clinical evidence of fluid overload. Patient felt to have CHF from high-output failure related to her profound anemia. echocardiogram shows EF of 60-65% and severe mitral regurgitation. She was transfused 2 units of packed red blood cells. Hemoglobin has climbed to the 7 range. She mentions that she has had an evaluation for anemia in the past and was found to have a 'bone marrow problem . Her hgb normally runs in the 9 range. She did see hematology here. Plan for patient to follow-up with Hematology after discharge. Will also plan to have the patient follow-up with Cardiology for further evaluation of her mitral valve regurgitation. GI was consulted with plans for EGD and colonoscopy today. Follow-up on results. 10/02/22 Patient feels well. No complaints. Cr up to 1.2 today from 0.7 yesterday. Ordered stat repeat to verify and this is still pending. EGD was normal. Colonoscopy showing polyp x 1 that was removed. No source of the blood loss. Suspect related to her bone marrow insufficency (aplastic anemia?). She will follow up with hematology. Further workup if Cr remains elevated. Subjective Date/time seen: 10/02/22 18:43 Interval history: 72yo female with CAD, HTN and CAROLINE here for weakness and abnormal lab work and found to have anemia. No issues overnight. Did not tolerate the mask last night. Feels well. Exam Narrative: AF ? 97.1 140/90 64 16 100% RA Gen - NARD Chest - CTA bilaterally, nml RR CV - RRR S1/S2. Tele showing no alarms Abd - Soft, obese, NT Ext - no pedal edema Psych - Nml mood and affect Skin - Warm and dry Objective Data Vital Signs Vital Signs: Vital Signs - 24 hr 10/01/22 20:04 10/01/22 20:00 10/01/22 20:00 Temperature Pulse Rate 68 65 Respir
[2022-10-02] MEDS: EZETIMIBE 10 MG TABLET PO (18:50)
[2022-10-02 19:05] LABS: Anion Gap 14 mmol/L (8-16); Blood Urea Nitrogen 18 mg/dL (7-17); Calcium 8.5 mg/dL (8.4-10.2); Carbon Dioxide 22 mmol/L (22-30); Chloride 103 mmol/L (98-107); Estimated CRCL calculation 56 ml/min; Estimated Glomerular Filt Rate 55; Glucose 135 mg/dL (65-110); Potassium 3.9 mmol/L (3.4-5.0); Sodium 139 mmol/L (137-145)
[2022-10-02] MEDS: TIZANIDINE HCL 4 MG TABLET PO (22:01)
[2022-10-03 04:34] VITALS: BP 115/57; PULSE 55; RESP 20; TEMP 36; O2SAT 97
[2022-10-03 06:15] LABS: NT Pro B Type Natriuretic Pept 840 pg/mL (5-100)
[2022-10-03 07:38] LABS: Anion Gap 10 mmol/L (8-16); Blood Urea Nitrogen 18 mg/dL (7-17); Calcium 8.3 mg/dL (8.4-10.2); Carbon Dioxide 21 mmol/L (22-30); Chloride 107 mmol/L (98-107); Estimated CRCL calculation 63 ml/min; Estimated Glomerular Filt Rate > 60; Glucose 114 mg/dL (65-110); Sodium 138 mmol/L (137-145)
[2022-10-03] MEDS: ATORVASTATIN 40 MG TABLET PO (09:06)
[2022-10-03] MEDS: PANTOPRAZOLE 40 MG TABLET PO (09:06)
[2022-10-03] MEDS: FOLIC ACID 1 MG TABLET PO (09:06)
[2022-10-03] MEDS: SERTRALINE HCL 50 MG TABLET PO (09:06)
[2022-10-03] MEDS: lisinopriL 20 MG TABLET 40 MG PO (09:06)
[2022-10-03] MEDS: EMPAGLIFLOZIN 25 MG TABLET PO (09:06)
[2022-10-03 09:07] VITALS: PULSE 78
[2022-10-03] MEDS: METOPROLOL TARTRATE 25 MG TABLET PO (09:07)
[2022-10-03] MEDS: HYDROcodone/acetaminophen (*CRX) 5-325 MG TABLET 1.5 TAB PO (09:07)
--- NOTE | 2022-10-07 10:21 | PC.NURSE ---
Pathology report faxed to Dr. Croft. Dr. Ayala aware of findings.
== END 2022-10-03 11:28 | disposition home or self-care (01) | DRG 812 ==
LOC: ANHED 18:20 → ANH3MED 20:01
PROVIDERS: Hospitalist; Internal Medicine Gastroenterology; Physician Assistant; Admitting Provider Chiropractor; Emergency Provider Emergency Medicine; PCP Internal Medicine; Visit Provider Internal Medicine
PROC: 0DJ08ZZ Inspection of Upper Intestinal Tract, Via Natural or Artificial Opening Endoscopic (ICD-10-PCS; CPT 43235; principal; 2022-10-01 15:00)
DX: D50.9 Iron deficiency anemia, unspecified (principal); N17.9 Acute kidney failure, unspecified; D64.9 Anemia, unspecified; I11.0 Hypertensive heart disease with heart failure; I50.83 High output heart failure; I34.0 Nonrheumatic mitral (valve) insufficiency; I25.10 Atherosclerotic heart disease of native coronary artery without angina pectoris; K63.5 Polyp of colon; K21.9 Gastro-esophageal reflux disease without esophagitis; K57.30 Diverticulosis of large intestine without perforation or abscess without bleeding; K64.8 Other hemorrhoids; E78.5 Hyperlipidemia, unspecified; G47.33 Obstructive sleep apnea (adult) (pediatric); Z20.822 Contact with and (suspected) exposure to COVID-19; Z96.642 Presence of left artificial hip joint; Z85.51 Personal history of malignant neoplasm of bladder; Z79.01 Long term (current) use of anticoagulants; Z79.82 Long term (current) use of aspirin; Z95.1 Presence of aortocoronary bypass graft
CPT/HCPCS: 36415; 36430; 71046; 80048; 80053; 82607; 82728; 82746; 82948; 83540; 83550; 83735; 83880; 84443; 84484; 85025; 85027; 85046; 85610; 85730; 86850; 86900; 86901; 86923; 88305; 93005; 93306; 93970; 96374; 96375; 99285; A9270; C9113; G0378; J1940; J2001; J2704; J7050; J7120; P9016; U0003; U0005